=== PATIENT | male | born 1955 | race Caucasian/White ===

== ENCOUNTER 2019-04-29 12:35 | Emergency (ER) | payer OTHER ==
[2019-04-29] MEDS: LORazepam 1 MG Tab PO ONE (12:59)
[2019-04-29] MEDS: NIFEdipine 60 MG Tab.ER PO ONE (13:20)
--- NOTE | 2019-04-29 13:41 | EDM.PDOC ---
ED HPI GENERAL MEDICAL PROBLEM - General Chief Complaint: General Stated Complaint: ANXIETY Time Seen by Provider: 04/29/19 12:45 Source of Information: Reports: Patient History Limitations: Reports: No Limitations - History of Present Illness INITIAL COMMENTS - FREE TEXT/NARRATIVE: Patient presented to the ED because of elevated BP and anxiety. He checked his BP today and it was 189/99, he denies having any headache,chest pain,dyspnea or leg edema. Because of his elevated BP he is getting anxious and hyperventilating. - Related Data Allergies Allergy/AdvReac Type Severity Reaction Status Date / Time Latex, Natural Rubber Allergy Rash Verified 03/07/18 12:21 Home Meds: Home Meds Escitalopram [Lexapro] 30 mg PO DAILY 07/20/15 [History] Omeprazole [Prilosec] 20 mg PO DAILY 07/20/15 [History] Albuterol Sulfate [Proair Hfa] 2 puff IH Q4H PRN 03/06/18 [History] Mirtazapine [Remeron] 15 mg PO BEDTIME 03/06/18 [History] Fluticasone/Vilanterol [Breo Ellipta 100-25 MCG Inhalation Kit] 1 puff INH DAILY 04/29/19 [History] Losartan [Cozaar] 1 tab PO DAILY 04/29/19 [History] Rosuvastatin [Crestor] 1 tab PO DAILY 04/29/19 [History] Tiotropium [place] [Spiriva Respimat] 2 puff INH DAILY 04/29/19 [History] Past Medical History HEENT History: Reports: Impaired Vision, Retinal Detachment, Other (See Below) Other HEENT History: tubes in bilateral ears Cardiovascular History: Reports: Angina Respiratory History: Reports: COPD, SOB Gastrointestinal History: Reports: GERD, Hiatal Hernia Psychiatric History: Reports: Depression Endocrine/Metabolic History: Hematologic History: Reports: None Oncologic (Cancer) History: Reports: Colon - Infectious Disease History Infectious Disease History: Reports: Measles, Mumps - Past Surgical History HEENT Surgical History: Reports: Detached Retina, Oral Surgery, Visual GI Surgical History: Reports: Colonoscopy, EGD Male Surgical History: Reports: None Social & Family History - Family History Cardiac: Reports: [place] [facility]: Reports: Musculoskeletal: Reports: Gout Endocrine/Metabolic: - Tobacco Use Smoking Status *Q: Current Every Day Smoker Years of Tobacco use: 40 Packs/Tins Daily: 2 - Caffeine Use Caffeine Use: Reports: Coffee - Alcohol Use Days Per Week of Alcohol Use: 7 Number of Drinks Per Day: 6 Total Drinks Per Week: 42 - Recreational Drug Use Recreational Drug Use: No ED ROS GENERAL - Review of Systems Review Of Systems: See Below Constitutional: Reports: No Symptoms HEENT: Reports: No Symptoms Respiratory: Reports: No Symptoms Cardiovascular: Reports: Blood Pressure Problem. Denies: Chest Pain, Dyspnea on Exertion, Edema, Palpitations Endocrine: Reports: No Symptoms GI/Abdominal: Reports: No Symptoms, Nausea : Reports: No Symptoms Musculoskeletal: Reports: No Symptoms ED EXAM, GENERAL - Physical Exam Exam: See Below Exam Limited By: No Limitations General Appearance: Alert, WD/WN, No Apparent Distress Ears: Normal External Exam, Normal Canal, Hearing Grossly Normal Nose: Normal Inspection, Normal Mucosa, No Blood Throat/Mouth: Normal Inspection, Normal Lips, Normal Teeth, Normal Gums Head: Atraumatic, Normocephalic Neck: Normal Inspection, Supple, Non-Tender, Full Range of Motion Respiratory/Chest: No Respiratory Distress, Lungs Clear, Normal Breath Sounds, No Accessory Muscle Use, Chest Non-Tender Cardiovascular: Normal Peripheral Pulses, Regular Rate, Rhythm, No Edema, No Gallop, No JVD, No Murmur, No Rub GI/Abdominal: Normal Bowel Sounds, Soft, Non-Tender, No Organomegaly, No Distention, No Abnormal Bruit, No Mass Back Exam: Normal Inspection, Full Range of Motion, CVA Tenderness (R) Extremities: Normal Inspection, Normal Range of Motion, Non-Tender, No Pedal Edema, Normal Capillary Refill Neurological: Alert, Oriented, CN II-XII Intact, Normal Cognition, Normal Gait, Normal Reflexes, No Motor/Sensory Deficits Skin Exam: Warm, Dry, Intact, Normal Color, No Rash Lymphatic: No Adenopathy Course - Vital Signs Text/Narrative:: labes reviewed and discussed with patient and with full understanding EKG-NSR vistaril 50 mg IM Ativan 1 mg IM procardia 6o mg po x1 Quit takining alkaseltzer which contain phenylephrine-can cause elevated BP, tachycardia and anxiety. Last Recorded V/S: Last Vital Signs Temp 36.5 C 04/29/19 12:41 Pulse 120 H 04/29/19 13:56 Resp 20 04/29/19 13:56 BP 145/99 H 04/29/19 13:56 Pulse Ox 95 04/29/19 13:56 - Orders/Labs/Meds Orders: Active Orders 24 hr Category Date Time Status Chest 1V Frontal [CR] Stat Exams 04/29/19 13:03 Taken Meds: Medications Discontinued Medications Generic Name Dose Route Start Last Admin Trade Name Kari PRN Reason Stop Dose Admin Hydroxyzine HCl 50 mg 04/29/19 13:47 04/29/19 13:53 Vistaril IM 04/29/19 13:48 50 mg ONETIME ONE Administration Lorazepam 1 mg 04/29/19 12:51 04/29/19 12:59 Ativan PO 04/29/19 12:52 1 mg ONETIME ONE Administration Nifedipine 60 mg 04/29/19 13:11 04/29/19 13:20 Procardia Xl PO 04/29/19 13:12 60 mg ONETIME ONE Administration Departure - Departure Time of Disposition: 13:35 Disposition: Home, Self-Care 01 Condition: Good Clinical Impression: Hypertension, Anxiety reaction, GERD (gastroesophageal reflux disease) - Discharge Information Instructions: Heartburn, [id number], Panic Attack, [id number], Hypertension , [id number] Referrals: Tian De La Cruz MD [Primary Care Provider] - Forms: ED Department Discharge Additional Instructions: please read discharge instructions on : 1.)hypertension low salt and low fat diet exercise take your medication on time 2.)Anxiety/depression continue your mirtazapine and escitalopram 3.) Chronic cough your chest xray is negative. I think your chronic cough is caused by your poorly controlled acid reflux due to your hiatal hernia. increase your omeprazole to 20 mg twice daily for one week instead of just once .daily Quit taking your paul seltzer, it contains phenylephrine which can cause increase heart rate,increase blood pressure and anxiety. - My Orders Last 24 Hours: My Active Orders 04/29/19 13:03 Chest 1V Frontal [CR] Stat - Assessment/Plan Last 24 Hours: My Active Orders 04/29/19 13:03 Chest 1V Frontal [CR] Stat
[2019-04-29] MEDS: hydrOXYzine HCl 50 MG/ML SDV IM ONE (13:53)
[2019-04-29 13:57] VITALS: BP 145/99; PULSE 120
== END 2019-04-29 14:27 | disposition home or self-care (01) ==
LOC: FB.ED 12:35
DX: I10 Essential (primary) hypertension (principal); F41.9 Anxiety disorder, unspecified; K21.9 Gastro-esophageal reflux disease without esophagitis; J44.9 Chronic obstructive pulmonary disease, unspecified; F32.9 Major depressive disorder, single episode, unspecified; F17.210 Nicotine dependence, cigarettes, uncomplicated; Z79.899 Other long term (current) drug therapy; Z79.51 Long term (current) use of inhaled steroids; Z91.040 Latex allergy status
CPT/HCPCS: 71045; 96372; 99283; A9270; J3410

== ENCOUNTER 2019-05-06 08:28 | Observation (INO) | payer OTHER ==
[2019-05-06] MEDS: Sodium Chloride 0.9% 10 ML Syringe FLUSH PRN ×4 (08:50→23:00)
--- NOTE | 2019-05-06 09:12 | PCM.HP.2 ---
H&P History of Present Illness - General Date of Service: 05/06/19 Admit Problem/Dx: Admission Diagnosis/Problem Admission Diagnosis/Problem Abdominal pain Source of Information: Patient, Old Records History Limitations: Reports: No Limitations - History of Present Illness Initial Comments - Free Text/Narative: Chalino is a 63-year-old male who came in from clinic because of epigastric pain. He describes sharp pain that started this morning at 3 AM suddenly. It does seem to radiate to the right upper quadrant. He denies nausea vomiting or constipation, but he did have a loose stool at the clinic this morning. He has no yeimy chest pain.He complains of chronic shortness of breath from COPD. He is a heavy tobacco user -2 packs/day. Pawan also has a history of hypertension and was recently placed on Losartan. Since that time, is complains of frequent falls and dizziness. In the summer,he was found to have a high calcium score, but echocardiogram was normal. He also has hyperlipidemia stable. - Related Data Allergies/Adverse Reactions: Allergies Allergy/AdvReac Type Severity Reaction Status Date / Time Latex, Natural Rubber Allergy Rash Verified 05/06/19 09:03 Home Medications: Home Meds Escitalopram [Lexapro] 30 mg PO DAILY 07/20/15 [History] Omeprazole [Prilosec] 20 mg PO DAILY 07/20/15 [History] Albuterol Sulfate [Proair Hfa] 2 puff IH Q4H PRN 03/06/18 [History] Mirtazapine [Remeron] 15 mg PO BEDTIME 03/06/18 [History] Losartan [Cozaar] 1 tab PO DAILY 04/29/19 [History] Rosuvastatin [Crestor] 1 tab PO DAILY 04/29/19 [History] Tiotropium [place] [Spiriva Respimat] 2 puff INH DAILY 04/29/19 [History] Past Medical History HEENT History: Reports: Impaired Vision, Retinal Detachment, Other (See Below) Other HEENT History: tubes in bilateral ears Cardiovascular History: Reports: Angina Respiratory History: Reports: COPD, SOB Gastrointestinal History: Reports: GERD, Hiatal Hernia Psychiatric History: Reports: Depression Other Psychiatric History: ETOH abuse, states he went to [facility] for alcohol abuse a couple years ago which did not work. Endocrine/Metabolic History: Hematologic History: Reports: None Oncologic (Cancer) History: Reports: Colon - Infectious Disease History Infectious Disease History: Reports: Measles, Mumps - Past Surgical History HEENT Surgical History: Reports: Detached Retina, Oral Surgery, Visual GI Surgical History: Reports: Colonoscopy, EGD Male Surgical History: Reports: None Social & Family History - Family History Family Medical History: Noncontributory Cardiac: Reports: [place] O[facility]: Reports: Musculoskeletal: Reports: Gout Endocrine/Metabolic: - Caffeine Use Caffeine Use: Reports: Coffee H&P Review of Systems - Review of Systems: Review Of Systems: Comprehensive ROS is negative, except as noted in HPI. Exam - Exam Exam: See Below - Exam General: Alert, Oriented, 4 HEENT: PERRLA, Hearing Intact, Mucosa Moist & [place], Nares Patent, Normal Nasal Septum, Posterior Pharynx Clear, Conjunctiva Clear, EOMI, EACs Clear, TMs Clear Neck: Supple, Trachea Midline, 2 Lungs: Rhonchi Cardiovascular: Tachycardia GI/Abdominal Exam: Soft, Distended, Tender. No: Guarding, Mass (Male) Exam: Deferred Rectal (Males) Exam: Deferred Back Exam: Normal Inspection, Full Range of Motion, NT Extremities: Normal Inspection, Normal Range of Motion, Non-Tender, No Pedal Edema, Normal Capillary Refill Skin: Warm, Dry, Intact Neurological: Cranial Nerves Intact, Reflexes Equal Bilateral Neuro Extensive - Mental Status: Alert, Oriented x3, Normal Mood/Affect, Normal Cognition Neuro Extensive - Motor, Sensory, Reflexes: CN II-XII Intact, Normal Gait, Normal Reflexes Psychiatric: Alert, Normal Affect, Normal Mood - Patient Data Result Diagrams: 05/06/19 08:55 05/06/19 08:55 EKG INTERPRETATION EKG Date: 05/06/19 Rhythm: NSR [place]: Normal ST-T: Normal - Problem List (1) Orthostatic hypotension SNOMED Code(s): 21842194 ICD Code: I95.1 - ORTHOSTATIC HYPOTENSION Status: Acute Current Visit: Yes (2) Tobacco abuse SNOMED Code(s): 924369439 ICD Code: Z72.0 - TOBACCO USE Status: Acute Current Visit: Yes (3) HTN (hypertension) SNOMED Code(s): 67181987 ICD Code: I10 - ESSENTIAL (PRIMARY) HYPERTENSION Status: Acute Current Visit: Yes Qualifiers: Hypertension type: essential hypertension Qualified Code(s): I10 - Essential (primary) hypertension (4) Epigastric abdominal pain SNOMED Code(s): 70147512 ICD Code: R10.13 - EPIGASTRIC PAIN Status: Acute Current Visit: Yes (5) COPD (chronic obstructive pulmonary disease) SNOMED Code(s): 17840534 ICD Code: J44.9 - CHRONIC OBSTRUCTIVE PULMONARY DISEASE, UNSPECIFIED Status : Acute Current Visit: Yes Qualifiers: COPD type: chronic bronchitis (6) Anxiety reaction SNOMED Code(s): 54616895 ICD Code: F41.1 - GENERALIZED ANXIETY DISORDER Status: Acute Current Visit: No (7) Hiatal hernia SNOMED Code(s): 23043398 ICD Code: K44.9 - DIAPHRAGMATIC HERNIA WITHOUT OBSTRUCTION OR GANGRENE Status: Acute Current Visit: No (8) EtOH dependence SNOMED Code(s): 83714765 ICD Code: F10.20 - ALCOHOL DEPENDENCE, UNCOMPLICATED Status: Acute Current Visit: Yes Qualifiers: Substance use status: uncomplicated Qualified Code(s): F10.20 - Alcohol dependence, uncomplicated (9) Acute kidney injury SNOMED Code(s): 02354803, 78319211 ICD Code: N17.9 - ACUTE KIDNEY FAILURE, UNSPECIFIED Status: Acute Current Visit: Yes Problem List Initiated/Reviewed/Updated: Yes Orders Last 24hrs: Active Orders 24 hr Category Date Time Status Patient Status [ADT] Routine ADT 05/06/19 08:46 Active Cardiac Monitoring [RC] CONTINUOUS Care 05/06/19 08:47 Active EKG Documentation Completion [RC] ASDIRECTED Care 05/06/19 08:48 Active Height and Weight [RC] DAILY Care 05/06/19 08:46 Active Intake and Output [RC] QSHIFT Care 05/06/19 08:46 Active Oxygen Therapy [RC] PRN Care 05/06/19 08:46 Active RT Aerosol Therapy [RC] ASDIRECTED Care 05/06/19 08:48 Active Up With Assistance [RC] ASDIRECTED Care 05/06/19 08:46 Active VTE/DVT Education [RC] Per Unit Routine Care 05/06/19 08:46 Active Vital Signs [RC] Q4H Care 05/06/19 08:46 Active Nothing per Oral After Midnight Diet [DIET] Diet 05/06/19 Breakfast Active Chest 2V [CR] Stat Exams 05/06/19 08:46 Ordered CBC WITH AUTO DIFF [HEME] AM Lab 05/07/19 05:11 Ordered CBC WITH AUTO DIFF [HEME] Stat Lab 05/06/19 08:55 Received COMPREHENSIVE METABOLIC PN,CMP [CHEM] AM Lab 05/07/19 05:11 Ordered COMPREHENSIVE METABOLIC PN,CMP [CHEM] Stat Lab 05/06/19 08:55 Received LIPASE [CHEM] Routine Lab 05/06/19 08:55 Received PRO B-TYPE NATRIUR PEPT,BNPPRO [CHEM] DAILY Lab 05/06/19 08:55 Received PRO B-TYPE NATRIUR PEPT,BNPPRO [CHEM] DAILY Lab 05/07/19 09:00 Ordered PRO B-TYPE NATRIUR PEPT,BNPPRO [CHEM] DAILY Lab 05/08/19 09:00 Ordered TROPONIN I [CHEM] Stat Lab 05/06/19 08:55 Received Albuterol/Ipratropium [DuoNeb 3.0-0.5 MG/3 ML] Med 05/06/19 11:00 Active 3 ml NEB QIDRT Sodium Chloride 0.9% [Saline Flush] Med 05/06/19 08:46 Active 10 ml FLUSH ASDIRECTED PRN Peripheral IV Insertion Adult [OM.PC] Routine Oth 05/06/19 08:46 Ordered Resuscitation Status Routine Resus Stat 05/06/19 08:46 Ordered EKG 12 Lead [EK] Stat Ther 05/06/19 08:46 Ordered Medication Orders Albuterol/Ipratropium (Duoneb 3.0-0.5 Mg/3 Ml) 3 ml NEB QIDRT ANA Sodium Chloride (Saline Flush) 10 ml FLUSH ASDIRECTED PRN PRN Reason: Keep Vein Open Assessment/Plan Comment:: Admit to Observation. His creatine is pretty high,which could be due to dehydration, and poor oral intake. Start IV F replacement. Start PPI. Nicotine replacement. Repeat Labs in AM. - Mortality Measure Prognosis:: Good
[2019-05-06] MEDS: Sodium Chloride 0.9% 1,000 ML IV SCH ×3 (10:07→19:45)
[2019-05-06] MEDS ORDERED: Sodium Chloride 0.9% 1,000 ML IV ONE (10:37)
[2019-05-06] MEDS ORDERED: FLU Vacc QS2019-20(6MOS+)/PF 60 MCG/0.5 ML SYRINGE IM ONE (11:00)
[2019-05-06] MEDS: Albuterol/Ipratropium 3.0-0.5 MG/3 ML Neb Soln NEB SCH ×3 (11:18→20:17)
[2019-05-06] MEDS: Pantoprazole 40 MG Tab.CR PO SCH (11:18)
[2019-05-06] MEDS ORDERED: Nicotine 21 MG/24 Hr Patch TRDERM SCH (11:30)
[2019-05-06] MEDS ORDERED: Morphine 2 MG/ML Syringe IVPUSH PRN (12:07)
[2019-05-06] MEDS ORDERED: Ondansetron 4 MG/2 ML SDV IVPUSH PRN (12:08)
[2019-05-06] MEDS ORDERED: Mirtazapine 15 MG Tab PO PRN (13:23)
--- NOTE | 2019-05-06 18:12 | US ---
INDICATION: Upper mid epigastric pain. ULTRASOUND OF THE ABDOMEN, COMPLETE: Multiple ultrasonographic images were obtained 05/06/19. No comparisons. The gallbladder appeared normal measuring 7.2 x 4 x 3.8 cm without evidence of wall thickening, calculi, sludge, or pericholecystic fluid. However, there is noted a positive ultrasonographic Thomas sign at a level of 7 out of 10 and the gallbladder appears slightly distended. The possibility is slightly enlarged for this specific patient is difficult to exclude. Additional work up of the gallbladder may be warranted dependent upon clinical correlation such as gallbladder ultrasound/Kinevac contraction study, or possibly Nuclear Medicine hepatobiliary imaging. Common bile duct appeared normal in caliber measuring less than 5 mm. The right and left kidneys appeared normal measuring on the right 10.7 x 4.8 x 6.2 cm and on the left 10.4 x 5.7 x 5.6 cm. The liver appeared grossly normal measuring 13.4 cm. The spleen had a normal appearance and measured 7.4 x 8.4 cm. The abdominal aorta was visualized only partially proximally at 1.6 cm and although an aneurysm was not detected, it cannot be entirely excluded due to a large amount of intestinal gas. The pancreas was poorly visualized, but there was question of a mass near the head of the pancreas. CT examination may be warranted to further evaluate the pancreas and aorta. Otherwise, no mass lesions or free fluid collections were identified. IMPRESSION: 1. Possible mass near the head of the pancreas. CT recommended for further evaluation. The aorta can also be evaluated for aneurysm at that time. 2. Positive ultrasonographic Thomas sign with the gallbladder appearing slightly distended, but not enlarged significantly. This is of questionable significance - additional work up of the gallbladder may be warranted depending upon clinical correlation such as ultrasound of the gallbladder/Kinevac contraction study, or Nuclear Medicine hepatobiliary imaging. Report was called to Dr. Townsend at 1448 hours. [facility]
--- NOTE | 2019-05-06 19:08 | CR ---
INDICATION: Short of breath. CHEST, TWO VIEWS: PA and lateral views of the chest 05/06/19 were compared with 04/29/19 and 07/21/17. The heart is enlarged. The aorta is tortuous with calcification in the arch. Prominent AP diameter with flattening of diaphragm leaves and hyperaeration with interdigitation of the right hemidiaphragm leaf are compatible with COPD. Paraesophageal hernia again noted. A definite consolidating pneumonia or effusion was not seen. Overlying EKG leads are noted. IMPRESSION: 1. No definite acute process. 2. COPD. 3. ASHD with cardiomegaly. 4. Moderately large paraesophageal hernia is suggested. This could be confirmed by upper GI and/or CT examination, as felt to be clinically necessary. MTDD
[2019-05-07] MEDS: Albuterol/Ipratropium 3.0-0.5 MG/3 ML Neb Soln NEB SCH (06:51)
[2019-05-07] MEDS: Pantoprazole 40 MG Tab.CR PO SCH (06:52)
[2019-05-07] MEDS ORDERED: Tiotropium Inhaler 18 MCG Inhalation Powder Cap Kit of 5 INH SCH (09:00)
[2019-05-07] MEDS ORDERED: Escitalopram 10 MG Tab PO SCH (09:00)
[2019-05-07 10:00] VITALS: BP 98/72; PULSE 111
--- NOTE | 2019-05-07 10:05 | DISCH ---
DISCHARGE DATE: 05/07/2019 REASON FOR ADMISSION: 1. Epigastric pain. 2. Acute renal failure. 3. Alcohol abuse. 4. Tobacco abuse. 5. COPD exacerbation. 6. Anxiety. 7. Hypertension. 8. Hiatal hernia. 9. Frequent falls. DISCHARGE DIAGNOSES: 1. Worsening acute kidney injury. 2. Possible pancreatic mass. 3. Alcohol dependency. BRIEF HISTORY: Mr. Garcia is a 63-year-old male who came in yesterday with decreased oral intake, epigastric pain of sudden onset, generalized weakness, and recent falls. He does use alcohol regularly and also a heavy smoker. Lives alone. Initial lab studies revealed acute kidney injury with a creatinine of 2.9. White cell count was 13.2. The chest x-ray was unremarkable so was the EKG. However, his pain in the epigastrium persisted. An ultrasound did not show any stones but was suspicious for mass in the pancreas. We were unable to obtain a CT scan given his creatinine function. Overnight, after getting 3 L of fluid intravenously, he was still unable to urinate and was noted to be bloated. His creatinine function this morning went up to 3.8 with a sodium of 129. His BNP was 1435. A decision was made to transfer him to [place] for consultation with hospitalist and/or Nephrology and further investigation of the possible mass in the pancreas. I spent more than 35 minutes in the discharge of the patient. /[id number] SHUN/MAYE
== END 2019-05-07 10:46 ==
LOC: FB.MS 08:37
PROVIDERS: ADMIT Family Medicine; ATTEND Family Medicine
DX: N17.9 Acute kidney failure, unspecified (principal); F10.20 Alcohol dependence, uncomplicated; J44.1 Chronic obstructive pulmonary disease with (acute) exacerbation; I10 Essential (primary) hypertension; K44.9 Diaphragmatic hernia without obstruction or gangrene; K21.9 Gastro-esophageal reflux disease without esophagitis; I95.1 Orthostatic hypotension; F41.9 Anxiety disorder, unspecified; F32.9 Major depressive disorder, single episode, unspecified; R29.6 Repeated falls; F17.210 Nicotine dependence, cigarettes, uncomplicated; Z91.040 Latex allergy status; Z79.899 Other long term (current) drug therapy
CPT/HCPCS: 36415; 71046; 76700; 80053; 83690; 83880; 84484; 85025; 93005; 94640; 96361; 96374; 96375; 96376; A9270-GY; G0378; J2270; J2405; J7030; J7620-GY

== ENCOUNTER 2019-07-02 11:45 | Inpatient (IN) | payer OTHER, MEDICAID ==
--- NOTE | 2019-07-02 11:57 | EDM.PDOC ---
ED HPI GENERAL MEDICAL PROBLEM - General Time Seen by Provider: 07/02/19 11:56 Source of Information: Reports: Patient History Limitations: Reports: No Limitations - History of Present Illness INITIAL COMMENTS - FREE TEXT/NARRATIVE: 63-year-old male who presents via ambulance from his home complaining of weakness, swelling in his feet and shortness of breath. He tells me that this has been ongoing for the past few months. He reports the swelling in his legs has been present since early May and seems to have been worsening with time. He also reports that he has been falling frequently and he last fell this morning at about 7 AM. He is not sure the details but awoke on the floor. He denies any pain. He rates his pain as a 0/10. Specifically, he has no chest pain , no abdominal pain, no neck pain or headache. He does admit to drinking alcohol daily. He drinks 5-6 drinks a day he reports. According a.m. he's already had 5-6 drinks today already. The EMS reported that he had a 1.75 L bottle of vodka that was 3/4-4/5ths of the way empty sitting on his counter. The patient reports that he was able to get up from falling this morning but he finds that it is difficult to even get around his apartment. He reports any activity causes him to become very short of breath. No nausea or vomiting. He was or chills. No dysuria. No cough. Apparently the patient was admitted following a similar type incident in April 2019 and had acute renal failure at that time. He was transferred to [place] for treatment and was transitioned to a swing bed at [facility] was discharged just around [address] time. According to the patient he has been drinking alcohol daily since that time. There are no other associated signs or symptoms. There are no other modifying factors. 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) (Nothing) - Related Data Allergies Allergy/AdvReac Type Severity Reaction Status Date / Time Latex, Natural Rubber Allergy Rash Verified 07/02/19 11:53 Home Meds: Home Meds Escitalopram [Lexapro] 30 mg PO DAILY 07/20/15 [History] Omeprazole [Prilosec] 20 mg PO DAILY 07/20/15 [History] Albuterol Sulfate [Proair Hfa] 2 puff IH Q4H PRN 03/06/18 [History] Mirtazapine [Remeron] 15 mg PO BEDTIME PRN 03/06/18 [History] Losartan [Cozaar] 50 mg PO DAILY 04/29/19 [History] Rosuvastatin [Crestor] 10 mg PO DAILY 04/29/19 [History] Tiotropium [place] [Spiriva Respimat] 2 puff INH DAILY 04/29/19 [History] Past Medical History HEENT History: Reports: Impaired Vision, Retinal Detachment Cardiovascular History: Reports: Hypertension Respiratory History: Reports: COPD Gastrointestinal History: Reports: GERD, Hiatal Hernia Psychiatric History: Reports: Addiction (Out: Be use), Anxiety, Depression Other Psychiatric History: ETOH abuse, states he went to [facility] for alcohol abuse a couple years ago which did not work. Endocrine/Metabolic History: Reports: Obesity/BMI 30+ Oncologic (Cancer) History: Reports: Colon - Infectious Disease History Infectious Disease History: Reports: Measles, Mumps - Past Surgical History HEENT Surgical History: Reports: Detached Retina, Oral Surgery GI Surgical History: Reports: Colonoscopy, EGD Musculoskeletal Surgical History: Reports: Other (See Below) Other Musculoskeletal Surgeries/Procedures:: LEFT BUNIONECTOMY Social & Family History - Family History Cardiac: Reports: PR OBGYN: Reports: Musculoskeletal: Reports: Gout Endocrine/Metabolic: - Tobacco Use Smoking Status *Q: Current Every Day Smoker - Caffeine Use Caffeine Use: Reports: Coffee - Alcohol Use Alcohol Use History: Yes Alcohol Use Frequency: Daily (5-6 mixed drinks daily) - Living Situation & Occupation Living situation: Reports: Alone ED ROS GENERAL - Review of Systems Review Of Systems: See Below Constitutional: Reports: Weakness, Fatigue HEENT: Reports: No Symptoms Respiratory: Reports: Shortness of Breath Cardiovascular: Reports: No Symptoms GI/Abdominal: Reports: No Symptoms : Reports: No Symptoms Musculoskeletal: Reports: No Symptoms Skin: Reports: No Symptoms Neurological: Reports: Weakness, Other (Blackouts) Hematologic/Lymphatic: Reports: No Symptoms Immunologic: Reports: No Symptoms ED EXAM, GENERAL - Physical Exam Exam: See Below Exam Limited By: No Limitations General Appearance: Alert, No Apparent Distress, Obese Eye Exam: Bilateral Eye: EOMI, Normal Inspection, PERRL Ears: Normal External Exam, Hearing Grossly Normal Ear Exam: Bilateral Ear: Auricle Normal Nose: Normal Inspection, Normal Mucosa, No Blood Throat/Mouth: Normal Voice, No Airway Compromise, Other (Strong odor of alcohol on his breath) Head: Normocephalic, Other (Bruising to his face) Neck: Normal Inspection Respiratory/Chest: No Respiratory Distress, No Accessory Muscle Use, Chest Non- Tender, Rhonchi Cardiovascular: Normal Peripheral Pulses, No JVD, No Murmur, Tachycardia Peripheral Pulses: 2+: Radial (L), Radial (R) GI/Abdominal: Normal Bowel Sounds, Soft, Non-Tender, No Mass Back Exam: Normal Inspection, Full Range of Motion Extremities: Normal Inspection, Normal Range of Motion, Non-Tender, Normal Capillary Refill, Pedal Edema Neurological: Alert, Oriented, CN II-XII Intact, Normal Cognition, No Motor/ Sensory Deficits Skin Exam: Warm, Dry, Intact, Normal Color, No Rash EKG INTERPRETATION EKG Date: 07/02/19 Time: 12:29 Rhythm: Other (Sinus tachycardia) Rate (Beats/Min): 102 [place]: Normal P-Wave: Present QRS: Normal ST-T: Other (Nonspecific) QT: Prolonged Comparison: No Change (No real change from EKG on 05/06/2019.) Course - Vital Signs Last Recorded V/S: Last Vital Signs Temp 36.7 C 07/02/19 11:45 Pulse 108 H 07/02/19 11:45 Resp 24 H 07/02/19 11:45 BP 117/77 07/02/19 11:45 Pulse Ox 95 07/02/19 11:45 - Orders/Labs/Meds Orders: Active Orders 24 hr Category Date Time Status Admission Status [Patient Status] [ADT] Routine ADT 07/02/19 13:29 Ordered Cardiac Monitoring [RC] .As Directed Care 07/02/19 13:02 Active Cardiac Monitoring [RC] .As Directed Care 07/02/19 13:29 Ordered EKG Documentation Completion [RC] ASDIRECTED Care 07/02/19 12:17 Active Harley Catheter Insertion [Insert Urinary Catheter] [OM. Care 07/02/19 13:00 Ordered PC] Q24H Urinary Catheter Assessment [RC] QSHIFT Care 07/02/19 13:00 Active Chest 1V Frontal [CR] Stat Exams 07/02/19 12:15 Taken Head wo Cont [CT] Stat Exams 07/02/19 12:15 Taken UA W/MICROSCOPIC [URIN] Stat Lab 07/02/19 12:15 Ordered Potassium Chloride [KCl 10 MEQ in Water 100 ML] 10 meq Med 07/02/19 12:58 Active Premix Bag 1 bag IV ONETIME Sodium Chloride 0.9% [Saline Flush] Med 07/02/19 12:15 Active 10 ml FLUSH ASDIRECTED PRN Sodium Chloride 0.9% [Saline Flush] Med 07/02/19 13:02 Active 10 ml FLUSH ASDIRECTED PRN Sodium Chloride 3% 500 ml Med 07/02/19 13:00 Active IV ASDIRECTED Peripheral IV Insertion Adult [OM.PC] Routine Oth 07/02/19 12:15 Ordered Peripheral IV Insertion Adult [OM.PC] Routine Oth 07/02/19 13:02 Ordered EKG 12 Lead [EK] Routine Ther 07/02/19 12:15 Ordered Medication Orders Potassium Chloride 10 meq/ (Premix) 100 mls @ 100 mls/hr IV ONETIME ONE Stop: 07/02/19 13:57 Sodium Chloride (Sodium Chloride 3%) 500 mls @ 40 mls/hr IV ASDIRECTED ANA Last Admin: 07/02/19 13:27 Dose: 40 mls/hr Sodium Chloride (Saline Flush) 10 ml FLUSH ASDIRECTED PRN PRN Reason: Keep Vein Open Sodium Chloride (Saline Flush) 10 ml FLUSH ASDIRECTED PRN PRN Reason: Keep Vein Open Labs: Laboratory Tests 07/02/19 07/02/19 07/02/19 Range/Units 12:05 12:05 12:05 WBC 11.0 (4.5-12.0) X10-3/uL RBC 3.94 L (4.30-5.75) x10(6)uL Hgb 14.0 (13.5-17.8) g/dL Hct 40.8 (30.0-51.3) % MCV 103.5 H (80-96) fL MCH 35.6 H (27.7-33.6) pg MCHC 34.4 (32.2-35.4) g/dL RDW 15.0 (11.5-15.5) % Plt Count 231 (125-369) X10(3)uL MPV 7.3 L (7.4-10.4) fL Add Manual Diff Yes Neutrophils % (Manual) 94 H (46-82) % Band Neutrophils % 1 (0-6) % Lymphocytes % (Manual) 3 L (13-37) % Monocytes % (Manual) 2 L (4-12) % PT 10.2 (8.7-11.1) INR 1.05 (0.89-1.13) POC VBG pH (7.31-7.41) POC VBG pCO2 (41-51) mmHG POC VBG HCO3 (23-28) mmol/L POC VBG Total CO2 (24-29) mmol/L POC VBG Base Excess (-2-3) mmol/L Sodium 113 L* D (135-145) mmol/L Potassium 2.0 L* D (3.5-5.3) mmol/L Chloride 72 L* D (100-110) mmol/L Carbon Dioxide 29 (21-32) mmol/L BUN 6 L D (7-18) mg/dL Creatinine 1.0 (0.70-1.30) mg/dL Est Cr Clr Drug Dosing 72.20 mL/min Estimated GFR (MDRD) > 60 (>60) BUN/Creatinine Ratio 6.0 L (9-20) Glucose 128 H (80-116) mg/dL Calcium 7.9 L (8.6-10.2) mg/dL Magnesium 0.6 L* (1.8-2.5) mg/dL Total Bilirubin 1.3 (0.1-1.3) mg/dL AST 42 H D (5-25) IU/L ALT 63 H (12-36) U/L Alkaline Phosphatase 89 (56-112) IU/L Troponin I (4.0-60.3) pg/mL NT-Pro-B Natriuret Pep (<=125) pg/mL Total Protein 6.4 (6.0-8.0) g/dL Albumin 3.0 L (3.2-4.6) g/dL Globulin 3.4 g/dL Albumin/Globulin Ratio 0.9 Ethyl Alcohol (<0.03) % 07/02/19 07/02/19 Range/Units 12:05 12:49 WBC (4.5-12.0) X10-3/uL RBC (4.30-5.75) x10(6)uL Hgb (13.5-17.8) g/dL Hct (30.0-51.3) % MCV (80-96) fL MCH (27.7-33.6) pg MCHC (32.2-35.4) g/dL RDW (11.5-15.5) % Plt Count (125-369) X10(3)uL MPV (7.4-10.4) fL Add Manual Diff Neutrophils % (Manual) (46-82) % Band Neutrophils % (0-6) % Lymphocytes % (Manual) (13-37) % Monocytes % (Manual) (4-12) % PT (8.7-11.1) INR (0.89-1.13) POC VBG pH 7.55 H (7.31-7.41) POC VBG pCO2 43.4 (41-51) mmHG POC VBG HCO3 37.8 H (23-28) mmol/L POC VBG Total CO2 39 H (24-29) mmol/L POC VBG Base Excess 15 H (-2-3) mmol/L Sodium (135-145) mmol/L Potassium (3.5-5.3) mmol/L Chloride (100-110) mmol/L Carbon Dioxide (21-32) mmol/L BUN (7-18) mg/dL Creatinine (0.70-1.30) mg/dL Est Cr Clr Drug Dosing mL/min Estimated GFR (MDRD) (>60) BUN/Creatinine Ratio (9-20) Glucose (80-116) mg/dL Calcium (8.6-10.2) mg/dL Magnesium (1.8-2.5) mg/dL Total Bilirubin (0.1-1.3) mg/dL AST (5-25) IU/L ALT (12-36) U/L Alkaline Phosphatase (56-112) IU/L Troponin I 12.9 (4.0-60.3) pg/mL NT-Pro-B Natriuret Pep 715 H (<=125) pg/mL Total Protein (6.0-8.0) g/dL Albumin (3.2-4.6) g/dL Globulin g/dL Albumin/Globulin Ratio Ethyl Alcohol < 0.03 (<0.03) % Meds: Medications Generic Name Dose Route Start Last Admin Trade Name Freq PRN Reason Stop Dose Admin Potassium Chloride 10 meq/ 100 mls @ 100 mls/hr 07/02/19 12:58 Premix IV 07/02/19 13:57 ONETIME ONE Sodium Chloride 500 mls @ 40 mls/hr 07/02/19 13:00 07/02/19 13:27 Sodium Chloride 3% IV 40 mls/hr ASDIRECTED ANA Administration Sodium Chloride 10 ml 07/02/19 12:15 Saline Flush FLUSH ASDIRECTED PRN Keep Vein Open Sodium Chloride 10 ml 07/02/19 13:02 Saline Flush FLUSH ASDIRECTED PRN Keep Vein Open Discontinued Medications Generic Name Dose Route Start Last Admin Trade Name Freq PRN Reason Stop Dose Admin Magnesium Sulfate 2 gm/ Premix 50 mls @ 150 mls/hr 07/02/19 12:58 IV 07/02/19 13:17 ONETIME ONE Lidocaine HCl 5 ml 07/02/19 13:01 Glydo .XX 07/02/19 13:02 ONETIME ONE - Radiology Interpretation Free Text/Narrative:: One view chest x-ray showed COPD with mild CHF CT scan of head showed no fracture and no bleeding. There was evidence of probable old lacunar infarcts in the basal ganglia. As per the radiologist. - Re-Assessments/Exams Free Text/Narrative Re-Assessment/Exam: 07/02/19 13:20: The patient has her hyponatremia, hypokalemia and hypomagnesemia. His other blood tests were during. The CT scan of his head showed no bleeding her and the chest x-ray showed some mild CHF. The patient will need admission for sodium, potassium and magnesium correction. He will need close monitoring. I will again treatment with 3% hypertonic saline. The patient will need at least a 2 midnight hospital stay to accomplish this plan of care. I discussed this with the patient and he would be in agreement with admission and he would be agreeable to admission at [facility]. I will discuss the patient's case with Dr. Ostmo, hospitalist, in regard to admission at [facility]. 07/02/19 13:30: I discussed the patient's case with Dr. Bustos and he will admit the patient. He will see the patient on the floor. The patient is in agreement with the plan for admission. Departure - Departure Time of Disposition: 13:42 Disposition: Admitted As Inpatient 65 Condition: Fair (Guarded) Clinical Impression: Acute hyponatremia, Hypokalemia, Hypomagnesemia, Alcohol abuse, Rapidly progressive weakness - Discharge Information Referrals: PCP,None [Ordering Only Provider] - Sepsis Event Note - Evaluation Sepsis Screening Result: No Definite Risk - Focused Exam Vital Signs: Vital Signs Temp Pulse Resp BP Pulse Ox 07/02/19 11:45 36.7 C 108 H 24 H 117/77 95 Date Exam was Performed: 07/02/19 Time Exam was Performed: 13:35 - My Orders Last 24 Hours: My Active Orders 07/02/19 12:15 Chest 1V Frontal [CR] Stat Head wo Cont [CT] Stat UA W/MICROSCOPIC [URIN] Stat Sodium Chloride 0.9% [Saline Flush] 10 ml FLUSH ASDIRECTED PRN Peripheral IV Insertion Adult [OM.PC] Routine EKG 12 Lead [EK] Routine 07/02/19 12:17 EKG Documentation Completion [RC] ASDIRECTED 07/02/19 12:58 Potassium Chloride [KCl 10 MEQ in Water 100 ML] 10 meq Premix Bag 1 bag IV ONETIME 07/02/19 13:00 Harley Catheter Insertion [Insert Urinary Catheter] [OM.PC] Q24H Urinary Catheter Assessment [RC] QSHIFT Sodium Chloride 3% 500 ml IV ASDIRECTED 07/02/19 13:02 Cardiac Monitoring [RC] .As Directed Sodium Chloride 0.9% [Saline Flush] 10 ml FLUSH ASDIRECTED PRN Peripheral IV Insertion Adult [OM.PC] Routine 07/02/19 13:29 Admission Status [Patient Status] [ADT] Routine Cardiac Monitoring [RC] .As Directed - Assessment/Plan Last 24 Hours: My Active Orders 07/02/19 12:15 Chest 1V Frontal [CR] Stat Head wo Cont [CT] Stat UA W/MICROSCOPIC [URIN] Stat Sodium Chloride 0.9% [Saline Flush] 10 ml FLUSH ASDIRECTED PRN Peripheral IV Insertion Adult [OM.PC] Routine EKG 12 Lead [EK] Routine 07/02/19 12:17 EKG Documentation Completion [RC] ASDIRECTED 07/02/19 12:58 Potassium Chloride [KCl 10 MEQ in Water 100 ML] 10 meq Premix Bag 1 bag IV ONETIME 07/02/19 13:00 Harley Catheter Insertion [Insert Urinary Catheter] [OM.PC] Q24H Urinary Catheter Assessment [RC] QSHIFT Sodium Chloride 3% 500 ml IV ASDIRECTED 07/02/19 13:02 Cardiac Monitoring [RC] .As Directed Sodium Chloride 0.9% [Saline Flush] 10 ml FLUSH ASDIRECTED PRN Peripheral IV Insertion Adult [OM.PC] Routine 07/02/19 13:29 Admission Status [Patient Status] [ADT] Routine Cardiac Monitoring [RC] .As Directed
[2019-07-02] MEDS ORDERED: Sodium Chloride 0.9% 10 ML Syringe FLUSH PRN (12:15)
[2019-07-02] MEDS ORDERED: Potassium Chloride 10 MEQ in Premix Bag 1 BAG IV ONE (12:58)
[2019-07-02] MEDS ORDERED: Magnesium Sulfate/Water 2 GM in Premix Bag 1 BAG IV ONE (12:58)
[2019-07-02] MEDS ORDERED: Sodium Chloride 3% 500 ML IV SCH (13:00)
[2019-07-02] MEDS ORDERED: Lidocaine 2% HCl 6 ML JEL.PF.APP ONE (13:01)
[2019-07-02] MEDS ORDERED: Sodium Chloride 0.9% 1,000 ML IV SCH (13:45)
--- NOTE | 2019-07-02 13:51 | CR ---
INDICATION: Shortness of breath. CHEST, ONE VIEW: Two AP upright views of the chest were obtained 07/02/19 and compared with 04/29/19 and 05/06/19. The heart appears to be enlarged. What may represent a large paraesophageal hernia is again noted. Upper lung field pulmonary vasculature is somewhat prominent raising question of CHF, minimal interstitial lung edema may be present as interstitial markings are slightly prominent. Findings also suggest the possibility of COPD. Overlying EKG leads are noted. IMPRESSION: 1. ASHD, cardiomegaly, CHF, minimal interstitial lung edema. 2. Large paraesophageal hernia filling the left lung base, it is difficult to exclude patchy bronchopneumonia in that area. 3. Probable COPD. MTDD
--- NOTE | 2019-07-02 13:59 | CT ---
INDICATION: Multiple falls, loss of consciousness. CT HEAD WITHOUT CONTRAST: Spiral 3.75 mm axial sections were obtained through the brain without contrast 07/02/19 - no comparisons. Total exam DLP was 1348.07 mGy-cm. The paranasal sinuses reveal evidence of retention cysts, one in each maxillary antrum, tiny on the left, moderate on the right with some frothy fluid posteriorly in the left maxillary antrum raising question of acute sinusitis. The paranasal sinuses were otherwise essentially unremarkable. Mastoid air cells appear to be fairly well aerated. There is a shift of midline structures without evidence of definite abnormal area of density - no bleeding site or hematoma was seen. Calcifications are noted in the internal carotid arteries. Orbits appear to be grossly intact. Some minimal low-density abnormalities are noted in the anterior limb of the right internal capsule at the genu of the left internal capsule raising question of minimal lacunar infarcts. IMPRESSION: 1. No definite acute intracranial abnormality. 2. Cerebrovascular disease. 3. Possible acute paranasal sinusitis - left maxillary antrum. 4. Suggestion of minimal lacunar infarcts. Report was called to Dr. Phan at 1335 hours. [facility]
[2019-07-02] MEDS: Nicotine 21 MG/24 Hr Patch TRDERM SCH (16:30)
[2019-07-02] MEDS ORDERED: Thiamine 200 MG in Sodium Chloride 0.9% 100 ML IV ONE (16:59)
[2019-07-02] MEDS ORDERED: Albuterol 8 GM Inhaler INH PRN (17:35)
[2019-07-02] MEDS: Aspirin 81 MG Tab.EC PO SCH (18:33)
--- NOTE | 2019-07-02 18:45 | HP ---
ADMISSION DATE: 07/02/2019 CHIEF COMPLAINT: Weakness, falls, hyponatremia, hypokalemia. HISTORY OF PRESENT ILLNESS: Chalino is a 63-year-old man with a history of chronic alcoholism, chronic COPD with 2-pack per day cigarette smoking, hyperlipidemia, depression, and GERD. The patient states that he fell in his house this morning. He could not get up and walk straight, so he called the ambulance. They brought him to the emergency room where he was evaluated by Dr. Phan, found to be extremely hyponatremic and hypokalemic. He is now admitted for treatment. Chalino states he was hospitalized at [facility] in [place] for epigastric pain. This turned out to be due to hiatal hernia. He was discharged to [facility] for rehab and went home from there about 6 weeks ago. He says he has been drinking daily ever since that. He is also on diuretic for swollen legs that occurred during his last hospitalization in [place], and he is on long-term SSRI for depression. PAST MEDICAL HISTORY: Significant for the recent hospitalization in [place]. As mentioned, he was admitted for abdominal pain with a suspected pancreatic mass, but this was ruled out with MRCP. He had at that time acute oligoanuric renal failure that resolved, COPD with respiratory failure, thrombocytopenia, hyponatremia at 129, chronic lower extremity edema, depression, GERD, and hyperlipidemia. He also has a history of acute and chronic alcoholism. He has had cataract surgery, hypertension, history of retinal detachment. He is status post myringotomy with PE tube, bunionectomy. FAMILY AND SOCIAL HISTORY: The patient lives by himself. He states he was fired from his job in [place] for too much missed work, and he continues to use alcohol and cigarettes. REVIEW OF SYSTEMS: GENERAL: No seizure, syncope, or recent significant weight change. SKIN: Negative for rash. HEENT: No recent change in hearing or vision. No sore throat or URI. RESPIRATORY: He does have a chronic cough. CARDIAC: No chest pain or palpitations. GASTROINTESTINAL: No abdominal pain. MUSCULOSKELETAL: He does report chronic swelling of his ankles and low back pain. PHYSICAL EXAMINATION: GENERAL: He is alert, awake, and he does give quite lucid history. VITAL SIGNS: Blood pressure 104/71, pulse 117 and regular, respirations 18, O2 saturation 100% on room air, temperature 98.1, weight 181 pounds. SKIN: Anicteric, warm, dry. No rash. There is a large ecchymosis over his left knee and scattered smaller ecchymoses over other 4 extremities. HEENT: Shows pupils to be equal and reactive. Oropharynx is clear. Mouth dry. LUNGS: Clear to the bases. HEART: Regular without murmur, rub, or gallop. ABDOMEN: Obese, soft. No organomegaly is noted, but he has protuberance and likely ascites present. EXTREMITIES: Show 2+ pitting edema at the ankles. LABORATORY: Hemoglobin 14, white count 11,000, MCV 103, platelets 231. Sodium 113, potassium 2.0, chloride 72, BUN 6, creatinine 1.0, magnesium 0.6, glucose 128. ProBNP 715. Urinalysis negative. Ethanol negative. ASSESSMENT: 1. Severe hyponatremia and hypokalemia resulting in fall with contusion in knees, sprain of his back. 2. Acute on chronic alcoholism. 3. Severe chronic obstructive pulmonary disease with continued smoking. 4. Gastroesophageal reflux disease. 5. Chronic anxiety and depression. PLAN: He is admitted. We will correct his electrolytes, assess him for additional medical problems, provide palliative care, and address his alcoholism. /[id number] OPAL/MAYE
[2019-07-02] MEDS: Escitalopram 10 MG Tab PO SCH (20:06)
[2019-07-02] MEDS: LORazepam 1 MG Tab PO PRN (20:06)
[2019-07-02] MEDS: Magnesium Oxide 400 MG Tab PO SCH (20:06)
[2019-07-02] MEDS: Mirtazapine 15 MG Tab PO SCH (20:06)
[2019-07-02] MEDS ORDERED: Potassium Chloride 40 MEQ/20 ML SDV IV SCH (21:00)
[2019-07-02] MEDS ORDERED: Potassium Chloride 20 MEQ Tab.ER PO SCH (21:00)
[2019-07-03] MEDS: Sodium Chloride 0.9% 10 ML Syringe FLUSH PRN (01:59)
[2019-07-03] MEDS ORDERED: Sodium Chloride 0.9% 1,000 ML IV SCH (02:00)
[2019-07-03] MEDS: Pantoprazole 40 MG Tab.CR PO SCH (06:33)
[2019-07-03] MEDS ORDERED: NS + KCl 20mEq/L 1,000 ML IV SCH (08:15)
[2019-07-03] MEDS ORDERED: Non-Formulary Medication 1 Each (Fluticasone/Vilanterol [Breo Ellipta 200-25 Mcg Inhalatio PO SCH (09:00)
[2019-07-03] MEDS ORDERED: TIOTROPIUM BROMIDE INH SCH (09:00)
[2019-07-03] MEDS: Potassium Phosphate,Mb-Db/Sodium Phosphate,Mb-Db Packet PO SCH ×3 (09:38→20:30)
[2019-07-03] MEDS: Magnesium Oxide 400 MG Tab PO SCH ×2 (09:38→20:30)
[2019-07-03] MEDS: Potassium Chloride 10 MEQ Tab.ER PO SCH ×3 (09:38→20:30)
[2019-07-03] MEDS: Vitamin B Complex with Vitamin C Tab PO SCH (09:39)
[2019-07-03] MEDS: Losartan 50 MG Tab PO SCH (09:49)
--- NOTE | 2019-07-03 10:28 | PN ---
DATE SEEN: 07/03/2019 HISTORY: Chalino is a 63-year-old man who was admitted through the emergency room yesterday with weakness, falls, back pain, and acute on chronic alcoholism. In the ER, he was found to have a hemoglobin of 14, MCV 103, sodium 113, potassium 2.0, magnesium 0.6. He was extremely weak. His urinalysis was unremarkable. CT of the head was negative for any acute signs of trauma, stroke, bleed, etc. Chest x-ray showed cardiomegaly with COPD. The patient was given IV 3% saline, potassium supplementation, IV magnesium, IV fluids for hydration, and admitted to the medical bed with telemetry under the [facility] protocol. The patient spent an uneventful night and is examined in his bed this morning. PHYSICAL EXAMINATION: GENERAL: He is alert and comfortable, complaining of back pain with movement. VITAL SIGNS: Blood pressure 99/62, pulse 96 and regular, respirations 18, O2 saturation 93% on 2 L nasal cannula oxygen, temperature 98.3. SKIN: Shows a large bruise over his left knee. There is a softball sized bruise over his posterior right flank. HEENT: Shows mouth to be dry. LUNGS: Clear to the bases without consolidation, slightly distant breath sounds. HEART: Regular. No murmur or gallop heard. ABDOMEN: Protuberant, soft, nontender, likely ascites present. BACK: Tender to palpation over the lumbar vertebrae. EXTREMITIES: Show good motion of the lower extremities including the bruised knee and 1+ edema at the malleoli. ASSESSMENT: 1. Acute on chronic alcoholism and withdrawal. 2. Severe hyponatremia. 3. Severe hypokalemia. 4. Severe hypomagnesemia. 5. Hypophosphatemia. 6. Low back pain post falls. PLAN: We will x-ray his lumbar spine today. Continue his sodium and potassium. Continue his electrolyte replenishment and IV fluid for hydration. We will also continue measures for alcohol withdrawal and palliative care measures. Chalino lives in an apartment with multiple stairs. We will assess during his hospitalization whether he is able to return to that environment. I anticipate another 48 to 72 hours of acute care hospital stay. /[id number] RO/LUCL
[2019-07-03] MEDS ORDERED: Albuterol/Ipratropium 3.0-0.5 MG/3 ML Neb Soln INH SCH (11:00)
[2019-07-03] MEDS ORDERED: Albuterol/Ipratropium 3.0-0.5 MG/3 ML Neb Soln INH ONE (11:00)
[2019-07-03] MEDS: Acetaminophen/Codeine 300-30 MG Tab PO PRN ×2 (12:37→18:46)
[2019-07-03] MEDS: Formoterol/Mometasone 200-5 MCG 8.8 GM Inhaler IH SCH ×2 (13:44→14:11)
[2019-07-03] MEDS: NS + KCl 20mEq/L 1,000 ML IV SCH (16:05)
[2019-07-03] MEDS: Nicotine 21 MG/24 Hr Patch TRDERM SCH (16:08)
[2019-07-03] MEDS: Aspirin 81 MG Tab.EC PO SCH (19:25)
--- NOTE | 2019-07-03 20:17 | CR ---
INDICATION: Low back pain. History of falls. LUMBOSACRAL SPINE: Frontal and lateral views of the lumbosacral spine were obtained and revealed somewhat diminished bone density raising question of osteomalacia or osteoporosis - correlate clinically. A mild dextroconvex scoliosis is noted at the upper lumbar spine - thoracolumbar spine. A compression fracture of indeterminate age is noted, mostly at the superior endplate, but also slightly anteriorly at the T12 vertebral body. There does not appear to be a compression fracture at T12 on the previous lateral chest x- ray dated 08/26/15. However, this fracture may have occurred at any time after that time. A definite acute fracture is not seen, but is difficult to entirely exclude - nuclear bone imaging may be helpful for further evaluation as may CT or MRI. The lumbar vertebral bodies were fairly well maintained. There is noted decreased disk space at L3-4, L4-5, especially L4-5 with vacuum disk phenomenon at L4-5. There is also a grade 1 anterolisthesis at L4-5. Additionally at L4-5 and L5-S1, there is sclerosis of the apophyseal joints, compatible with osteoarthritis. Calcifications are noted in the abdominal aorta and iliac arteries. IMPRESSION: 1. Compression fracture, possibly osteoporotic-type T12 indeterminate age, but likely old. Additional more advanced imaging may be helpful depending upon clinical necessity. 2. Diminished bone density suggesting osteomalacia or osteoporosis - correlate clinically. 3. Degenerative changes and disk disease L4-5, possibly minimally at L5-S1 as to disk disease, but with sclerosis at the apophyseal joints of L4-5, L5-S1. Additionally, there appears to be disk disease at L3-4 with narrowing of that disk space and relatively mild hypertrophic changes anteriorly off vertebral bodies from L3 inferior aspect through L5 inferior aspect. 4. ASD. 5. Mild dextroconvex scoliosis upper lumbar spine at the thoracolumbar junction - could be positional - correlate clinically. MTDD
[2019-07-03] MEDS: Albuterol/Ipratropium 3.0-0.5 MG/3 ML Neb Soln INH SCH (20:30)
[2019-07-03] MEDS: Mirtazapine 15 MG Tab PO SCH (20:30)
[2019-07-03] MEDS: Escitalopram 10 MG Tab PO SCH (20:30)
[2019-07-04] MEDS: NS + KCl 20mEq/L 1,000 ML IV SCH ×2 (00:08→08:19)
[2019-07-04] MEDS: Pantoprazole 40 MG Tab.CR PO SCH ×2 (06:07→06:54)
[2019-07-04] MEDS: Losartan 50 MG Tab PO SCH (08:27)
[2019-07-04] MEDS: Magnesium Oxide 400 MG Tab PO SCH ×2 (08:28→20:37)
[2019-07-04] MEDS: Albuterol/Ipratropium 3.0-0.5 MG/3 ML Neb Soln INH SCH ×2 (08:28→20:41)
[2019-07-04] MEDS: Vitamin B Complex with Vitamin C Tab PO SCH (08:28)
[2019-07-04] MEDS: Acetaminophen/Codeine 300-30 MG Tab PO PRN ×2 (08:30→15:36)
[2019-07-04] MEDS: LORazepam 1 MG Tab PO PRN (09:25)
[2019-07-04] MEDS: Potassium Chloride 10 MEQ Tab.ER PO SCH ×3 (10:44→20:37)
[2019-07-04] MEDS: Potassium Phosphate,Mb-Db/Sodium Phosphate,Mb-Db Packet PO SCH ×3 (10:44→20:37)
--- NOTE | 2019-07-04 13:39 | PN ---
DATE SEEN: 07/04/2019 SUBJECTIVE: Chalino Garcia is a 63-year-old male; admitted through the ER with weakness, falls, complicated back pain, and acute on chronic alcoholism. Hemoglobin was stable. Sodium 113, potassium 2.0, and magnesium 0.6. Markedly weak. CT of the head revealed no trauma. Chest x-ray revealed cardiomegaly, underlying COPD. He has been given IV saline including 3% through his hospital stay. Laboratory studies: Sodium has gone from 113 to 124 to 125 to 133; potassium from 2 to 2.6, 3.2 to 4.3; chloride 72, 86, 90 to 98; noted low albumin; and magnesium went from 0.6 to 1.7. All within comfortable range. Harley catheter is in place. He has had some agitation, tremor, and alcohol withdrawal, moderate. Scores have been above 4. He seems to be a bit more of that today. OBJECTIVE: VITAL SIGNS: 36.8, pulse 107, 114/60, 16, and 99% on 2 L. GENERAL: Appears comfortable. Little agitated, little tremulous. Speech is a bit gated. Mouth and oropharynx are clear. NECK: Benign. Thyroid small. CHEST: Clear in all lung thakur. Decreased breath sounds in lower lung thakur. HEART: Tachycardic at 110 hours. ABDOMEN: Benign. Harley catheter in place. ASSESSMENT: 1. Significant hyponatremia, hypokalemia, hypochloremia resolving. 2. Mid back pain, secondary to fall, old but not new fracture. 3. Harley catheter. PLAN: We will decrease the Harley catheter, discontinue IVs, complementary care and well being. PT actively involved. Discharge planning in a day or so. /[id number] GUADALUPE/MAYE
[2019-07-04] MEDS: Nicotine 21 MG/24 Hr Patch TRDERM SCH (15:36)
[2019-07-04] MEDS: Aspirin 81 MG Tab.EC PO SCH (18:10)
[2019-07-04] MEDS: Escitalopram 10 MG Tab PO SCH (20:37)
[2019-07-04] MEDS: Mirtazapine 15 MG Tab PO SCH (20:37)
[2019-07-05] MEDS: Acetaminophen/Codeine 300-30 MG Tab PO PRN ×3 (00:25→21:21)
[2019-07-05] MEDS: Pantoprazole 40 MG Tab.CR PO SCH ×2 (06:13→06:29)
[2019-07-05] MEDS: Potassium Phosphate,Mb-Db/Sodium Phosphate,Mb-Db Packet PO SCH ×2 (08:15→14:55)
[2019-07-05] MEDS: Potassium Chloride 10 MEQ Tab.ER PO SCH (08:16)
[2019-07-05] MEDS: Vitamin B Complex with Vitamin C Tab PO SCH (08:16)
[2019-07-05] MEDS: Magnesium Oxide 400 MG Tab PO SCH ×2 (08:16→20:44)
[2019-07-05] MEDS: Losartan 50 MG Tab PO SCH (08:18)
[2019-07-05] MEDS: Albuterol/Ipratropium 3.0-0.5 MG/3 ML Neb Soln INH SCH ×2 (08:18→20:44)
[2019-07-05] MEDS: LORazepam 0.5 MG Tab PO PRN (08:54)
--- NOTE | 2019-07-05 12:41 | PN ---
DATE SEEN: 07/05/2019 SUBJECTIVE: Pawan Garcia is a 63-year-old male, admitted with host of complicating issues. He had a complicated fall, progressive underlying COPD, increasing alcohol intake. Living situation, problematic, 3rd floor, returning home unlikely. LABORATORY STUDIES OF SIGNIFICANCE: Electrolytes; sodium had been 113, now 137; potassium 2, now 5.1. We will discontinue his Klor. Other laboratory studies are otherwise unremarkable. Magnesium most recently 1.7, on magnesium therapy. OBJECTIVE: VITAL SIGNS: Pulse 130, 93 on 1 L. ASSESSMENT: Underlying chronic obstructive pulmonary disease. MEDICATIONS: Include: 1. Albuterol. 2. Lexapro. 3. Ativan, reducing doses. 4. Losartan. We will add metoprolol XL 25 mg 1 p.o. daily, reduction in blood pressure and agitation. /[id number] GUADALUPE/MAYE
[2019-07-05] MEDS: Metoprolol Succinate 25 MG Tab.ER PO SCH (13:00)
[2019-07-05] MEDS: Sodium Chloride 0.9% 10 ML Syringe FLUSH PRN (15:15)
[2019-07-05] MEDS: Nicotine 21 MG/24 Hr Patch TRDERM SCH (16:09)
[2019-07-05] MEDS: Aspirin 81 MG Tab.EC PO SCH (17:47)
[2019-07-05] MEDS: Escitalopram 10 MG Tab PO SCH (20:44)
[2019-07-05] MEDS: Mirtazapine 15 MG Tab PO SCH (20:44)
[2019-07-06] MEDS: Pantoprazole 40 MG Tab.CR PO SCH (06:34)
[2019-07-06] MEDS: Vitamin B Complex with Vitamin C Tab PO SCH (08:30)
[2019-07-06] MEDS: Magnesium Oxide 400 MG Tab PO SCH ×2 (08:30→20:32)
[2019-07-06] MEDS: Metoprolol Succinate 25 MG Tab.ER PO SCH (08:30)
[2019-07-06] MEDS: Losartan 50 MG Tab PO SCH (08:31)
[2019-07-06] MEDS: Albuterol/Ipratropium 3.0-0.5 MG/3 ML Neb Soln INH SCH ×2 (08:31→20:32)
[2019-07-06] MEDS: Acetaminophen/Codeine 300-30 MG Tab PO PRN ×2 (13:48→20:34)
[2019-07-06] MEDS: LORazepam 0.5 MG Tab PO PRN (13:49)
[2019-07-06] MEDS: Nicotine 21 MG/24 Hr Patch TRDERM SCH (15:44)
[2019-07-06] MEDS: Aspirin 81 MG Tab.EC PO SCH (18:25)
[2019-07-06] MEDS: Mirtazapine 15 MG Tab PO SCH (20:32)
[2019-07-06] MEDS: Escitalopram 10 MG Tab PO SCH (20:32)
[2019-07-07] MEDS: Acetaminophen/Codeine 300-30 MG Tab PO PRN ×3 (06:18→20:03)
[2019-07-07] MEDS: Pantoprazole 40 MG Tab.CR PO SCH (06:38)
--- NOTE | 2019-07-07 08:51 | PN ---
DATE SEEN: 07/06/2019 SUBJECTIVE: Pawan Garcia is a young man, 63 years of age admitted with acute complicated weakness. Chronic alcoholism, chronic COPD, 2-pack per day smoker, oxygen-dependent COPD, and gastroesophageal reflux. He took a fall at home, could not get up, brought by ambulance. He was evaluated, hyponatremic found to 113. Had been drinking alcohol excessively, also on diuretic and an SSRI. Please see hospital summary thus far. Response has been beneficial. Agitation resolved. Hypernatremia resolved, continues to show great difficult daily cares. PHYSICAL EXAMINATION: VITAL SIGNS: Stable. 36.8, pulse 112, 111/82 is the blood pressure, 95% on room air. GENERAL: Disheveled but responsive. Appropriately answers. HEENT unremarkable. NECK: Supple. Thyroid small. No JVD. CHEST: Decreased breath sounds. Coarse rhonchi. HEART: Distant heart sounds. No ectopy or murmur. ABDOMEN: Benign. ASSESSMENT: Complicated chronic obstructive pulmonary disease, hypertension, hyperlipidemia, and chronic alcoholism. PLAN: Stable at present. Medications on board. Ativan for agitation, heart rate control on board, plan likely discharge to [facility] or [facility]. Not able to return to his third story apartment. /[id number] GUADALUPE/MAYE
[2019-07-07] MEDS: Magnesium Oxide 400 MG Tab PO SCH ×2 (09:30→20:04)
[2019-07-07] MEDS: Losartan 50 MG Tab PO SCH (09:30)
[2019-07-07] MEDS: Albuterol/Ipratropium 3.0-0.5 MG/3 ML Neb Soln INH SCH ×2 (09:30→20:04)
[2019-07-07] MEDS: Metoprolol Succinate 25 MG Tab.ER PO SCH (09:31)
[2019-07-07] MEDS: Vitamin B Complex with Vitamin C Tab PO SCH (09:31)
[2019-07-07] MEDS: LORazepam 0.5 MG Tab PO PRN ×2 (10:12→14:57)
[2019-07-07] MEDS: Nicotine 21 MG/24 Hr Patch TRDERM SCH (15:05)
--- NOTE | 2019-07-07 15:41 | PN ---
DATE SEEN: 07/07/2019 SUBJECTIVE: Chalino Garcia is a 63-year-old male admitted with a host of complicating health issues. Had a recurrent fall. Some suspicion for T12 fracture, . Alcohol withdrawal, complicated smoking, and COPD disturbing issues. LABORATORY DATA: Recent laboratory studies, none. On 07/05/2019, electrolytes back to normal, sodium 137, potassium 5.1, GFR greater than 60, mildly elevated liver enzymes, and low protein levels. PHYSICAL EXAMINATION: VITAL SIGNS: 36.7, 143/98, 18, 94% on 0.5 L. GENERAL: Disheveled and uncomfortable. Speech was a bit gated. NECK: No JVD. Thyroid small. CHEST: Decreased breath sounds. Increased AP diameter. Prolonged expiratory phase. HEART: Distant heart sounds. Occasional ectopy. Soft murmur. ASSESSMENT: 1. Acute on chronic alcoholism. 2. Mid back pain, likely old versus new. 3. Degenerative joint disease. 4. Chronic obstructive pulmonary disease. PLAN: Discharge home to his third floor apartment unlikely an opportunity. Support services in place. Other living situations to be considered. /[id number] GUADALUPE/MAYE
[2019-07-07] MEDS: Aspirin 81 MG Tab.EC PO SCH (18:28)
[2019-07-07] MEDS: Mirtazapine 15 MG Tab PO SCH (20:04)
[2019-07-07] MEDS: Escitalopram 10 MG Tab PO SCH (20:04)
[2019-07-08] MEDS ORDERED: Docusate Sodium 100 MG Cap PO PRN (00:26)
[2019-07-08] MEDS: Pantoprazole 40 MG Tab.CR PO SCH (06:39)
[2019-07-08] MEDS: Metoprolol Succinate 25 MG Tab.ER PO SCH (09:16)
[2019-07-08] MEDS: Magnesium Oxide 400 MG Tab PO SCH ×2 (09:16→20:25)
[2019-07-08] MEDS: Losartan 50 MG Tab PO SCH (09:16)
[2019-07-08] MEDS: Albuterol/Ipratropium 3.0-0.5 MG/3 ML Neb Soln INH SCH ×2 (09:16→20:26)
[2019-07-08] MEDS: Vitamin B Complex with Vitamin C Tab PO SCH (09:17)
[2019-07-08] MEDS: LORazepam 0.5 MG Tab PO PRN ×2 (09:20→20:30)
[2019-07-08] MEDS: Acetaminophen/Codeine 300-30 MG Tab PO PRN (10:53)
--- NOTE | 2019-07-08 13:52 | PN ---
DATE SEEN: 07/08/2019 SUBJECTIVE: Pawan Garcia is a 63-year-old gentleman continues in acute care. Home situation problematic. Third floor apartment. COPD is a complicating issue. [facility] not allowed, alcohol of concern. Discharge planning in place. Otherwise doing better. Pain is controlled. Supplemental O2 beneficial. LABORATORY STUDIES: On 07/05/19, electrolytes have returned to normal. Liver enzymes have dropped, AST from 42 to 34. ALT from 63 to 54. OBJECTIVE: VITAL SIGNS: 112/76, pulse 106, respirations 20, and 96% on 2 L. GENERAL: Appears comfortable, disheveled gentleman. NECK: Benign. CHEST: Decreased breath sounds. Increased AP diameter. Prolonged expiratory phase. HEART: Sounds distant, occasional ectopy. ABDOMEN: Benign. ASSESSMENT: Chronic obstructive pulmonary disease, chronic alcoholism, deconditioning, and weakness. PLAN: Therapy still in place, medications on board, discharge planning in progress. /[id number] GUADALUPE/MAYE
[2019-07-08] MEDS: Nicotine 21 MG/24 Hr Patch TRDERM SCH (16:08)
[2019-07-08] MEDS: Aspirin 81 MG Tab.EC PO SCH (17:54)
[2019-07-08] MEDS: Escitalopram 10 MG Tab PO SCH (20:25)
[2019-07-08] MEDS: Mirtazapine 15 MG Tab PO SCH (20:25)
[2019-07-09] MEDS: Pantoprazole 40 MG Tab.CR PO SCH (06:29)
[2019-07-09] MEDS: Albuterol/Ipratropium 3.0-0.5 MG/3 ML Neb Soln INH SCH ×2 (09:11→20:08)
[2019-07-09] MEDS: Magnesium Oxide 400 MG Tab PO SCH ×2 (09:11→20:08)
[2019-07-09] MEDS: Losartan 50 MG Tab PO SCH (09:11)
[2019-07-09] MEDS: Metoprolol Succinate 25 MG Tab.ER PO SCH (09:11)
[2019-07-09] MEDS: Vitamin B Complex with Vitamin C Tab PO SCH (09:12)
[2019-07-09] MEDS: LORazepam 0.5 MG Tab PO PRN ×2 (09:27→13:51)
--- NOTE | 2019-07-09 13:11 | PN ---
DATE SEEN: 07/09/2019 SUBJECTIVE: Pawan Garcia is a 63-year-old male, seen today for a routine care. Still in acute care. PROBLEM/ISSUE: Social situation, living in 3rd floor apartment, continues to smoke and drink alcohol. Increasingly oxygen-dependent chronic obstructive pulmonary disease. MEDICATIONS: Reviewed and appropriate. PHYSICAL EXAMINATION: VITAL SIGNS: 36.1, 90/59, 18, 97% on 1 L. GENERAL: Disheveled but appropriate. NEUROLOGIC: Speech was fluent. NECK: Benign. Thyroid small. No JVD. CHEST: Coarse rhonchi. Late expiratory wheezes. HEART: No ectopy or murmur. ABDOMEN: Benign. ASSESSMENT: Chronic obstructive pulmonary disease, O2 dependent; chronic alcoholism; 2 pack per day smoker; living situation under conflict. PLAN: Medications, care and treatment appropriate. No changes required. Discharge planning in place. /[id number] GUADALUPE/MAYE
[2019-07-09] MEDS: Nicotine 21 MG/24 Hr Patch TRDERM SCH (15:50)
[2019-07-09] MEDS: Acetaminophen/Codeine 300-30 MG Tab PO PRN (17:20)
[2019-07-09] MEDS: Aspirin 81 MG Tab.EC PO SCH (17:20)
[2019-07-09] MEDS: Escitalopram 10 MG Tab PO SCH (20:08)
[2019-07-09] MEDS: Mirtazapine 15 MG Tab PO SCH (20:08)
[2019-07-10] MEDS: Acetaminophen/Codeine 300-30 MG Tab PO PRN (00:19)
[2019-07-10] MEDS: Pantoprazole 40 MG Tab.CR PO SCH ×2 (06:26→06:47)
[2019-07-10] MEDS: Losartan 50 MG Tab PO SCH (09:33)
[2019-07-10] MEDS: Albuterol/Ipratropium 3.0-0.5 MG/3 ML Neb Soln INH SCH ×2 (09:36→20:04)
[2019-07-10] MEDS: Magnesium Oxide 400 MG Tab PO SCH ×2 (09:36→20:04)
[2019-07-10] MEDS: Metoprolol Succinate 25 MG Tab.ER PO SCH (09:37)
[2019-07-10] MEDS: Vitamin B Complex with Vitamin C Tab PO SCH (09:37)
[2019-07-10] MEDS: Furosemide 20 MG Tab PO SCH (10:10)
[2019-07-10] MEDS: LORazepam 0.5 MG Tab PO PRN ×2 (10:56→19:18)
--- NOTE | 2019-07-10 10:56 | PN ---
DATE SEEN: 07/10/2019 SUBJECTIVE: Pawan Garcia is a 63-year-old, male, admitted with a host of issues of concern. Presented with weakness, falls, profound hyponatremia. Alcohol related issues, tremors, and increasing need for O2. Chronic obstructive pulmonary disease is a problematic issue. Inhalation therapy in place. He had a recent admission to [facility], epigastric pain, thought to be a tumor, not problematic, hiatal hernia. Progressive decline. On a diuretic or swollen legs that occurred. Long-term SSRI, reason for hyponatremia. Discharge planning is difficult, 3rd floor apartment. Discharge planning obtained. [facility] would not accept due to his alcohol intake. Otherwise doing better. Supplemental O2 still required. OBJECTIVE: VITAL SIGNS: 36.4, 92, 96/62, 18, 94.1 on 1 L. GENERAL: Disheveled but comfortable. Speech was fluent. NECK: No JVD. CHEST: Decreased breath sounds. Coarse rhonchi. Late inspiratory wheezes. HEART: Distant heart sounds. Occasional ectopy. ABDOMEN: Benign. ASSESSMENT: Chronic obstructive pulmonary disease, O2 dependent; chronic alcoholism; weakness; and reduced well-being. PLAN: Hyponatremia has resolved. Most recent laboratories on 07/05/2019, sodium 137, potassium 5.0, chloride 100. We will continue supportive management. /[id number] /MAYE
[2019-07-10] MEDS: Nicotine 21 MG/24 Hr Patch TRDERM SCH (16:02)
[2019-07-10] MEDS: Aspirin 81 MG Tab.EC PO SCH (19:13)
[2019-07-10] MEDS: Escitalopram 10 MG Tab PO SCH (20:04)
[2019-07-10] MEDS: Mirtazapine 15 MG Tab PO SCH (20:04)
[2019-07-11] MEDS: Pantoprazole 40 MG Tab.CR PO SCH (06:41)
[2019-07-11] MEDS: Acetaminophen/Codeine 300-30 MG Tab PO PRN (08:49)
[2019-07-11] MEDS: Losartan 50 MG Tab PO SCH (08:50)
[2019-07-11] MEDS: Furosemide 20 MG Tab PO SCH (08:50)
[2019-07-11] MEDS: Magnesium Oxide 400 MG Tab PO SCH (08:51)
[2019-07-11] MEDS: Vitamin B Complex with Vitamin C Tab PO SCH (08:51)
[2019-07-11] MEDS: Metoprolol Succinate 25 MG Tab.ER PO SCH (08:51)
[2019-07-11 08:52] VITALS: BP 114/74
[2019-07-11] MEDS: Albuterol/Ipratropium 3.0-0.5 MG/3 ML Neb Soln INH SCH (08:53)
--- NOTE | 2019-07-11 10:52 | DISCH ---
DISCHARGE DATE: 07/11/2019 REASON FOR ADMISSION: 1. Severe hyponatremia. 2. Alcohol abuse. 3. COPD. 4. Chronic back pain. 5. Anxiety and depression. DISCHARGE DIAGNOSES: 1. Severe hyponatremia. 2. Alcohol abuse. 3. Chronic obstructive pulmonary disease. 4. Chronic back pain. 5. Anxiety and depression. BRIEF HISTORY: This is a 63-year-old male who was admitted with weakness, found to have a sodium of 113, has been in the hospital for 10 days, with treatment for alcohol withdrawal, pain control, nutrition, physical and occupational therapy. He has been hypoxic at times, especially on ambulation, but is now off oxygenation. He does have a history of alcohol abuse and tobacco abuse as well. It is my understanding that he now has quit both. I discharged him back home today with home health. DISCHARGE MEDICATIONS: As follows: 1. Albuterol p.r.n. 2. Tylenol No. 3 one tablet every 6 hours p.r.n. 3. Lorazepam 0.5 mg p.o. b.i.d. p.r.n. 4. Lasix 10 mg a day. 5. Lexapro 10 mg a day. 6. Docusate sodium 100 mg daily p.r.n. 7. Magnesium oxide 400 mg p.o. b.i.d. 8. Metoprolol 25 mg a day. 9. Remeron 50 mg at bedtime. 10.Nicotine patch 21 mg transdermally daily. 11.Omeprazole 20 mg a day. FOLLOWUP: He will see Dr. De La Cruz on the at 1000 hours. He will also continue to follow up with home health. I spent more than 35 minutes in the discharge of the patient. /[id number] SHUN/MAYE
[2019-07-11 17:14] VITALS: PULSE 102
== END 2019-07-11 13:44 | disposition home health service (06) | DRG 641 ==
LOC: FB.ED 11:45 → FB.MS 13:29
PROVIDERS: ADMIT Family Medicine; ATTEND Family Medicine
DX: E87.1 Hypo-osmolality and hyponatremia (principal); F10.239 Alcohol dependence with withdrawal, unspecified; J44.9 Chronic obstructive pulmonary disease, unspecified; F41.9 Anxiety disorder, unspecified; F32.9 Major depressive disorder, single episode, unspecified; E87.6 Hypokalemia; E83.42 Hypomagnesemia; M54.5 Low back pain; E78.5 Hyperlipidemia, unspecified; I10 Essential (primary) hypertension; F17.210 Nicotine dependence, cigarettes, uncomplicated; K21.9 Gastro-esophageal reflux disease without esophagitis; E66.9 Obesity, unspecified; R45.1 Restlessness and agitation; S80.02XA Contusion of left knee, initial encounter; S80.01XA Contusion of right knee, initial encounter; Z91.040 Latex allergy status; Z79.899 Other long term (current) drug therapy; Z68.29 Body mass index [BMI] 29.0-29.9, adult; W19.XXXA Unspecified fall, initial encounter
CPT/HCPCS: 36415; 70450; 71045; 72100; 80053; 80069; 81001; 82803; 83735; 83880; 84484; 85018; 85025; 85610; 93005; 94150; 94640; 94760; 97110-GP; 97116-GP; 97161-GP; 97165-GO; 97530-GO; 97530-GP; 97535-GO; 97763-GO; 99285-25; A9270-GY; G0480; J3411; J3475; J3480; J7030; J7050; J7131; J7620-GY

== ENCOUNTER 2019-08-24 09:21 | Emergency (ER) | payer OTHER ==
[2019-08-24 09:42] VITALS: BP 135/85; PULSE 116
--- NOTE | 2019-08-24 09:45 | EDM.PDOC ---
ED HPI GENERAL MEDICAL PROBLEM - General Stated Complaint: BACK PAIN Time Seen by Provider: 08/24/19 09:30 Source of Information: Reports: Patient History Limitations: Reports: No Limitations - History of Present Illness INITIAL COMMENTS - FREE TEXT/NARRATIVE: Patient presented to the ED because of upper back pain. He fell at home while walking and landed on his upper back. He was recently diagnosed with compression fracture of the the T11-T12 vertebra and is on a back brace. He is afraid that he has another fracture. back pain Pain Score (Numeric/FACES): 8 - Related Data Allergies Allergy/AdvReac Type Severity Reaction Status Date / Time Latex, Natural Rubber Allergy Rash Verified 08/24/19 09:27 Home Meds: Home Meds Omeprazole [Prilosec] 20 mg PO DAILY 07/20/15 [History] Albuterol Sulfate [Proair Hfa] 2 puff IH Q4H PRN 03/06/18 [History] Mirtazapine [Remeron] 15 mg PO BEDTIME 03/06/18 [History] Losartan [Cozaar] 50 mg PO DAILY 04/29/19 [History] Rosuvastatin [Crestor] 10 mg PO BEDTIME 04/29/19 [History] Tiotropium [place] [Spiriva Respimat] 2 puff INH DAILY 04/29/19 [History] Aspirin [Halfprin] 81 mg PO WITHDINNER 07/02/19 [History] Escitalopram [Lexapro] 10 mg PO BEDTIME 07/02/19 [History] Fluticasone/Vilanterol [Breo Ellipta 200-25 MCG Inhalation Kit] 1 puff PO DAILY 07/02/19 [History] Vitamin B Complex [B Complex] 1 tab PO DAILY 07/02/19 [History] Acetaminophen/Codeine [Tylenol with Codeine No.3 300MG/30MG] 1 tab PO Q6H PRN # 30 tablet 07/11/19 [Rx] Furosemide [Lasix] 10 mg PO DAILY #30 tablet 07/11/19 [Rx] LORazepam [Lorazepam] 0.5 mg PO BID PRN #30 tablet 07/11/19 [Rx] Magnesium Oxide 400 mg PO BID #60 tablet 07/11/19 [Rx] Metoprolol Succinate [Toprol XL] 25 mg PO DAILY #30 tab.er 07/11/19 [Rx] Nicotine [Habitrol] 21 mg TRDERM DAILY@1600 #30 patch 07/11/19 [Rx] Cyclobenzaprine [Flexeril] 10 mg PO TID PRN #30 tab 08/24/19 [Rx] Past Medical History HEENT History: Reports: Impaired Vision, Retinal Detachment Other HEENT History: tubes in bilateral ears Cardiovascular History: Reports: Hypertension Respiratory History: Reports: COPD Gastrointestinal History: Reports: GERD, Hiatal Hernia Genitourinary History: Reports: Renal Disease Musculoskeletal History: Reports: None Psychiatric History: Reports: Addiction, Anxiety, Depression Other Psychiatric History: ETOH abuse, states he went to [facility] for alcohol abuse a couple years ago which did not work. Endocrine/Metabolic History: Reports: Obesity/BMI 30+ Hematologic History: Reports: None Oncologic (Cancer) History: Reports: Colon - Infectious Disease History Infectious Disease History: Reports: Measles, Mumps - Past Surgical History HEENT Surgical History: Reports: Detached Retina, Oral Surgery GI Surgical History: Reports: Colonoscopy, EGD Male Surgical History: Reports: None Musculoskeletal Surgical History: Reports: Other (See Below) Other Musculoskeletal Surgeries/Procedures:: LEFT BUNIONECTOMY Social & Family History - Family History Family Medical History: Noncontributory Cardiac: Reports: [place] OBGYN: Reports: Musculoskeletal: Reports: Gout Endocrine/Metabolic: - Caffeine Use Caffeine Use: Reports: None - Living Situation & Occupation Living situation: Reports: Alone ED ROS GENERAL - Review of Systems Review Of Systems: See Below Constitutional: Reports: No Symptoms HEENT: Reports: No Symptoms Respiratory: Reports: No Symptoms Cardiovascular: Reports: No Symptoms Endocrine: Reports: No Symptoms GI/Abdominal: Reports: No Symptoms : Reports: No Symptoms Musculoskeletal: Reports: Back Pain Skin: Reports: No Symptoms Neurological: Reports: No Symptoms Psychiatric: Reports: No Symptoms ED EXAM, UPPER BACK/NECK PAIN - Physical Exam Exam: See Below Exam Limited By: No Limitations General Appearance: No Apparent Distress Ears Exam: Normal External Exam, Normal Canal, Hearing Grossly Normal Nose Exam: Normal Inspection, Normal Mucousa, No Blood Throat/Mouth Exam: Normal Inspection, Normal Lips, Normal Teeth Head Exam: Atraumatic, Normocephalic Neck Exam: Non-Tender, Full Range of Motion Cardiovascular/Respiratory: Regular Rate, Rhythm GI/Abdominal: Normal Bowel Sounds, Soft, Non-Tender (Male) Exam: No Hernia, Normal Inspection Back Exam: Normal Inspection, Full Range of Motion, Vertebral Tenderness Extremities: Normal Inspection Course - Vital Signs Text/Narrative:: xray thoracic spine-see result Last Recorded V/S: Last Vital Signs Temp 36.9 C 08/24/19 09:25 Pulse 116 H 08/24/19 09:25 Resp 20 08/24/19 09:25 BP 135/85 08/24/19 09:25 Pulse Ox 96 08/24/19 09:25 - Orders/Labs/Meds Orders: Active Orders 24 hr Category Date Time Status Thoracic Spine 3V [CR] Stat Exams 08/24/19 09:35 Taken Departure - Departure Time of Disposition: 10:20 Disposition: Home, Self-Care 01 Condition: Good Clinical Impression: Thoracic compression fracture - Discharge Information Prescriptions: Cyclobenzaprine [Flexeril] 10 mg PO TID PRN #30 tab PRN Reason: Spasms Instructions: Thoracic Spine Fracture Referrals: Tian De La Cruz MD [Primary Care Provider] - Forms: ED Department Discharge Additional Instructions: Please read discharge instructions on compression fracture take flexeril 10 mg with tylenol 1000 mg 3 times daily as needed for muscle spasm and pain follow up as needed Sepsis Event Note - Focused Exam Vital Signs: Vital Signs Temp Pulse Resp BP Pulse Ox 08/24/19 09:25 36.9 C 116 H 20 135/85 96 Date Exam was Performed: 08/24/19 Time Exam was Performed: 10:43 - My Orders Last 24 Hours: My Active Orders 08/24/19 09:35 Thoracic Spine 3V [CR] Stat - Assessment/Plan Last 24 Hours: My Active Orders 08/24/19 09:35 Thoracic Spine 3V [CR] Stat
--- NOTE | 2019-08-25 10:06 | CR ---
INDICATION: Fall, upper back pain - pain below scapula. THORACIC SPINE: Frontal and lateral views of the thoracic spine were obtained with five images and revealed a severe compression fracture at what appears to be T12 and was present partially on 07/03/2019 to a relatively mild degree. There is now more than 50% loss of anterior vertebral body volume as well as cranial endplate depression and slight loss of volume posteriorly. There is an appearance suggesting demineralization which should be correlated clinically. Vertebral body and disc heights are otherwise fairly well maintained in the thoracic spine with only minimal degenerative change in the mid thoracic spine with hypertrophic lipping off vertebral bodies anteriorly. IMPRESSION: Progression of compression fracture at T12, possibly osteoporotic type. It is now severe at T12, having been relatively mild on 07/03/2019. MTDD
== END 2019-08-24 10:15 | disposition home or self-care (01) ==
LOC: FB.ED 09:21
DX: S22.089A Unspecified fracture of T11-T12 vertebra, initial encounter for closed fracture (principal); I10 Essential (primary) hypertension; J44.9 Chronic obstructive pulmonary disease, unspecified; K21.9 Gastro-esophageal reflux disease without esophagitis; E66.9 Obesity, unspecified; F41.9 Anxiety disorder, unspecified; F32.9 Major depressive disorder, single episode, unspecified; Z68.27 Body mass index [BMI] 27.0-27.9, adult; Z91.040 Latex allergy status; W01.0XXA Fall on same level from slipping, tripping and stumbling without subsequent striking against object, initial encounter
CPT/HCPCS: 72072; 99283-25

== ENCOUNTER 2019-08-31 05:07 | Emergency (ER) | payer MEDICARE, OTHER ==
[2019-08-31 05:21] VITALS: BP 118/84; PULSE 120
[2019-08-31] MEDS ORDERED: Morphine 10 MG/ML SDV IM ONE (05:24)
--- NOTE | 2019-08-31 05:28 | EDM.PDOC ---
ED HPI GENERAL MEDICAL PROBLEM - General Chief Complaint: Back Pain or Injury Stated Complaint: BACKPAIN Time Seen by Provider: 08/31/19 05:25 Source of Information: Reports: Patient History Limitations: Reports: No Limitations - History of Present Illness INITIAL COMMENTS - FREE TEXT/NARRATIVE: Severe back pain for 1 mo.Got worse last two days,with spasms. Has had T 12 compression fractures being managed by his PCP. He is also known to abuse alcohol. He has taken Tylenol #3 and Flexeril with no relief. No fever or chills.Pain is n the middle of the back,with no radiation. Back Pain Score (Numeric/FACES): 10 - Related Data Allergies Allergy/AdvReac Type Severity Reaction Status Date / Time Latex, Natural Rubber Allergy Rash Verified 08/24/19 09:27 Home Meds: Home Meds Omeprazole [Prilosec] 20 mg PO DAILY 07/20/15 [History] Albuterol Sulfate [Proair Hfa] 2 puff IH Q4H PRN 03/06/18 [History] Mirtazapine [Remeron] 15 mg PO BEDTIME PRN 03/06/18 [History] Losartan [Cozaar] 50 mg PO DAILY 04/29/19 [History] Rosuvastatin [Crestor] 10 mg PO BEDTIME 04/29/19 [History] Tiotropium [place] [Spiriva Respimat] 2 puff INH DAILY 04/29/19 [History] Aspirin [Halfprin] 81 mg PO WITHDINNER 07/02/19 [History] Escitalopram [Lexapro] 10 mg PO BEDTIME 07/02/19 [History] Fluticasone/Vilanterol [Breo Ellipta 200-25 MCG Inhalation Kit] 1 puff PO DAILY 07/02/19 [History] Vitamin B Complex [B Complex] 1 tab PO DAILY 07/02/19 [History] Acetaminophen/Codeine [Tylenol with Codeine No.3 300MG/30MG] 1 tab PO Q6H PRN # 30 tablet 07/11/19 [Rx] Furosemide [Lasix] 10 mg PO DAILY #30 tablet 07/11/19 [Rx] Magnesium Oxide 400 mg PO BID #60 tablet 07/11/19 [Rx] Metoprolol Succinate [Toprol XL] 25 mg PO DAILY #30 tab.er 07/11/19 [Rx] Cyclobenzaprine [Flexeril] 10 mg PO TID PRN #30 tab 08/24/19 [Rx] Past Medical History HEENT History: Reports: Impaired Vision, Retinal Detachment Other HEENT History: tubes in bilateral ears Cardiovascular History: Reports: Hypertension Respiratory History: Reports: COPD Gastrointestinal History: Reports: GERD, Hiatal Hernia Genitourinary History: Reports: Renal Disease Musculoskeletal History: Reports: None Psychiatric History: Reports: Addiction, Anxiety, Depression Other Psychiatric History: ETOH abuse, states he went to [facility] for alcohol abuse a couple years ago which did not work. Endocrine/Metabolic History: Reports: Obesity/BMI 30+ Hematologic History: Reports: None Oncologic (Cancer) History: Reports: Colon - Infectious Disease History Infectious Disease History: Reports: Measles, Mumps - Past Surgical History HEENT Surgical History: Reports: Detached Retina, Oral Surgery GI Surgical History: Reports: Colonoscopy, EGD Male Surgical History: Reports: None Musculoskeletal Surgical History: Reports: Other (See Below) Other Musculoskeletal Surgeries/Procedures:: LEFT BUNIONECTOMY Social & Family History - Family History Family Medical History: Noncontributory Cardiac: Reports: [place] OBGYN: Reports: Musculoskeletal: Reports: Gout Endocrine/Metabolic: - Tobacco Use Smoking Status *Q: Current Every Day Smoker Years of Tobacco use: 40 Packs/Tins Daily: 1.5 - Caffeine Use Caffeine Use: Reports: Coffee - Alcohol Use Days Per Week of Alcohol Use: 7 Number of Drinks Per Day: 2 Total Drinks Per Week: 14 - Recreational Drug Use Recreational Drug Use: No - Living Situation & Occupation Living situation: Reports: Alone ED ROS GENERAL - Review of Systems Review Of Systems: Comprehensive ROS is negative, except as noted in HPI. ED EXAM,LOWER BACK PAIN/INJURY - Physical Exam Exam: See Below Exam Limited By: No Limitations General Appearance: Alert, Anxious Neck: Normal Inspection Respiratory/Chest: No Respiratory Distress, Lungs Clear Cardiovascular: Normal Peripheral Pulses GI/Abdominal: Distended Back Exam: Muscle Spasm, Paraspinal Tenderness, Vertebral Tenderness. No: Full Range of Motion Extremities: Normal Inspection Neurological: Alert, Normal Mood/Affect Course - Vital Signs Last Recorded V/S: Last Vital Signs Temp 97.7 F 08/31/19 05:18 Pulse 120 H 08/31/19 05:18 Resp 18 08/31/19 05:18 BP 118/84 08/31/19 05:18 Pulse Ox 98 08/31/19 05:18 - Orders/Labs/Meds Meds: Medications Discontinued Medications Generic Name Dose Route Start Last Admin Trade Name Kari PRN Reason Stop Dose Admin Diazepam 10 mg 08/31/19 05:24 08/31/19 05:32 Valium IM 08/31/19 05:25 10 mg ONETIME ONE Administration Morphine Sulfate 10 mg 08/31/19 05:24 08/31/19 05:32 Morphine IM 08/31/19 05:25 10 mg ONETIME ONE Administration Departure - Departure Time of Disposition: 08:54 Disposition: Home, Self-Care 01 Condition: Good Clinical Impression: Fracture of thoracic spine - Discharge Information Instructions: Chronic Back Pain, [id number] Referrals: PCP,None [Primary Care Provider] - Forms: ED Department Discharge Sepsis Event Note - Evaluation Sepsis Screening Result: No Definite Risk - Focused Exam Date Exam was Performed: 09/01/19 Time Exam was Performed: 08:54 - Problem List & Annotations (1) Thoracic compression fracture SNOMED Code(s): 203886766 Code(s): S22.000A - WEDGE COMPRESSION FRACTURE OF UNSP THORACIC VERTEBRA, INIT Status: Acute (2) Anxiety reaction SNOMED Code(s): 63682970 Code(s): F41.1 - GENERALIZED ANXIETY DISORDER Status: Acute (3) EtOH dependence SNOMED Code(s): 81828819 Code(s): F10.20 - ALCOHOL DEPENDENCE, UNCOMPLICATED Status: Acute Qualifiers: Substance use status: uncomplicated Qualified Code(s): F10.20 - Alcohol dependence, uncomplicated - Problem List Review Problem List Initiated/Reviewed/Updated: Yes - Assessment/Plan Plan: Valium and Morphine IM. [place] better.DC home,with PCP follow up
== END 2019-08-31 05:59 | disposition home or self-care (01) ==
LOC: FB.ED 05:07
DX: S22.009A Unspecified fracture of unspecified thoracic vertebra, initial encounter for closed fracture (principal); I10 Essential (primary) hypertension; J44.9 Chronic obstructive pulmonary disease, unspecified; K21.9 Gastro-esophageal reflux disease without esophagitis; F41.9 Anxiety disorder, unspecified; F32.9 Major depressive disorder, single episode, unspecified; E66.9 Obesity, unspecified; Z68.27 Body mass index [BMI] 27.0-27.9, adult; F17.210 Nicotine dependence, cigarettes, uncomplicated; Z91.040 Latex allergy status; Z79.82 Long term (current) use of aspirin; Z79.899 Other long term (current) drug therapy; X58.XXXA Exposure to other specified factors, initial encounter
CPT/HCPCS: 96372; 99283; J2270; J3360